=== PATIENT | female | born 1970 | race Caucasian/White ===

== ENCOUNTER → 2023-04-17 08:51 | Outpatient (CLI) | payer OTHER, SELFPAY ==
--- NOTE | ~2023-04-17 | MR_ITS ---
EXAMINATION: MR hand LT wo/w con, MR hand RT wo/w con DATE: 04/17/2023 10:16 INDICATION: Rheumatoid arthritis with chronic bilateral generalized hand pain TECHNIQUE: 1. Magnetic resonance imaging (MRI) of the left hand was performed without and with 12 mL Multihance intravenous contrast. Sequences included axial, sagittal and coronal T1-weighted FSE and fluid sensit faina FSE STIR, axial T1-weighted FS FSE and postcontrast axial and sagittal T1-weighted FS FSE. 2. MRI of the right hand was performed without and with 12 mm MultiHance intravenous contrast utilizi ng the same contrast bolus. Sequences included axial, sagittal and coronal T1-weighted FSE and fluid sensitive FSE STIR, axial T1-weighted FS FSE and postcontrast axial and sagittal T1-weighted FS FSE. COMPARISON: None FINDINGS: Left hand: There is prominent T2 hyperintense and enhancing tenosynovitis extending along the extensor carpi rad ialis longus and brevis tendons and the extensor carpi ulnaris tendon. There is a large amount of flu id in the abductor pollicis longus tendon with thin peripheral rim of surrounding enhancing synovium proximal and distal to its crossing over of the extensor carpi radialis tendons. There is severe tend inopathy and longitudinal split tearing of the extensor carpi radialis brevis tendon and of the exten sor carpi ulnaris tendon. Additional mild tenosynovitis along the distal flexor pollicis longus tendo n. Bone alignment is normal with normal marrow signal throughout. No fracture or pathologic marrow re placing process. Mild polyarticular osteoarthritis at the wrist,, triscaphe, first carpometacarpal an d multiple interphalangeal joints. No evident erosions to suggest inflammatory arthritis. Small joint effusion at the first carpometacarpal joint. Ganglion cyst extending volar from the radiocarpal join t which measures 19 x 8 x 8 mm . 9 x 8 x 4 mm fluid collection seen proximal to the pisiform likely w ithin the pisotriquetral recess. Right hand: Prominent enhancing tenosynovitis along the distal extensor indices and digitorum longus tendon to th e second digit located dorsal to the head and neck of the second metacarpal. There is additional teno synovial enhancement the deep aspect of the carpal tunnel primarily along the extensor digitorum supe rficialis tendon to the second digit with associated moderate tendinopathy and longitudinal split tea ring of the tendon at the level of the distal carpal row. Small amount of fluid without significant t enosynovial enhancement seen along the flexor pollicis longus tendon. There is mild palmar subluxatio n at the first metacarpophalangeal joint with moderate associated osteoarthritis. There is an enhanci ng T2 hyperintense erosion at the base of the first proximal phalanx. Additional mild polyarticular o steoarthritis at the wrist, triscaphe, first carpometacarpal and many of the interphalangeal joints. There are couple small T2 hyperintense enhancing erosions at the volar aspect of the proximal capitat e. Marrow signal is otherwise unremarkable. No fracture. There is additional mild enhancement with mi nimal increased fluid signal at the distal palmar interosseous muscle between the third and fourth me tacarpals. IMPRESSION: 1. Tenosynovitis involving a few flexor and extensor tendons at the bilateral hands most severe at th e left extensor carpi radialis longus and brevis, left extensor carpi ulnaris and right second flexor digitorum superficialis tendons, each with associated tendinopathy and split tearing of the tendons. This be consistent with provided history of rheumatoid arthritis. Differential would include crystal deposition diseases such as gout or CPPD. Infection, trauma or mechanical irritation be unlikely giv en the multiple independent locations. 2. Stable distribution polyarticular osteoarthritis at the bilateral hands and wrists, moderate sever ity at the right first metacarpophalangeal
== END ==
PROVIDERS: PCP Internal Medicine; Visit Provider Internal Medicine
DX: M06.9 Rheumatoid arthritis, unspecified (principal); M65.842 Other synovitis and tenosynovitis, left hand; M65.841 Other synovitis and tenosynovitis, right hand
CPT/HCPCS: 73220; A9577

== ENCOUNTER → 2023-05-05 14:36 | Outpatient (CLI) | payer OTHER, SELFPAY ==
--- NOTE | ~2023-05-05 | XR_ITS ---
XR lumbar spine min 4V DATE: 05/05/2023 15:20 INDICATION: Rheumatoid arthritis TECHNIQUE: AP, lateral, bilateral oblique views, coned lateral lumbosacral view COMPARISON: None FINDINGS: Diffuse osteopenia. Moderate degenerative disc disease and associated minimal retrolisthesis at L2-3 and L4-5. Mild degen erative disc disease at L3-4. No anterolisthesis. No spondylolysis. The included lower thoracic and lumbar pedicles are intact. No fracture or bone destruction of the lumbar spine is detected. The sacroiliac joints are intact. IMPRESSION: Mild to moderate degenerative disc disease Osteopenia Reviewed, dictated and finalized at location [facility].
--- NOTE | ~2023-05-05 | XR_ITS ---
XR sacroiliac joints min 3V DATE: 05/05/2023 15:20 INDICATION: Rheumatoid arthritis TECHNIQUE: AP and bilateral oblique views COMPARISON: None FINDINGS: Normal alignment and preservation of the sacroiliac joints, without apparent erosive change s or ankylosis. IMPRESSION: Negative sacroiliac joints Reviewed, dictated and finalized at [facility]. Reviewed, dictated and finalized at location [facility]. IMPRESSION: Negative sacroiliac joints
== END ==
PROVIDERS: PCP Family Medicine; Visit Provider Internal Medicine
DX: M05.79 Rheumatoid arthritis with rheumatoid factor of multiple sites without organ or systems involvement (principal); M51.36 Other intervertebral disc degeneration, lumbar region; M85.88 Other specified disorders of bone density and structure, other site
CPT/HCPCS: 72110; 72202

== ENCOUNTER 2024-03-21 18:51 | Emergency (ER) | payer OTHER, SELFPAY ==
[2024-03-21 19:01] VITALS: BP 132/78; PULSE 70; RESP 18; TEMP 36.9; O2SAT 99
--- NOTE | 2024-03-21 19:18 | ED.ABDPAIN ---
HPI - Abdominal Pain General Chief Complaint: Abdominal Pain Stated Complaint: stomach pain Time Seen by Provider: 03/21/24 19:10 History of Present Illness HPI narrative: patient presents with complaints of crampy burning abdominal pain that began last night. She reports it has been intermittent throughout the day today. She reports that she has somewhat loose stools at baseline, states that there has been no change in her stool pattern. She denies any urinary symptoms. She denies any fever, chills, sweats. She says she just feels bad . Patient said that a few days ago she did have some joint pain was worse than her typical rheumatoid arthritis pain. She reports that she took turmeric for this. Patient does not believe in taking Tylenol or ibuprofen Related Data Allergies Allergy/AdvReac Type Severity Reaction Status Date / Time No Known Allergies Allergy Mild Verified 03/21/24 19:04 Review of Systems Review of Systems: All systems reviewed & are unremarkable except as noted in HPI and below Constitutional: Constitutional: Reports no additional constitutional complaints ENT: Reports system reviewed and no additional complaints, except as documented and Reports as per HPI Cardiovascular: Cardiovascular: Reports as per HPI and Reports no additional cardiovascular complaints Respiratory: Respiratory: Reports as per HPI, Reports no additional respiratory complaints and Reports no additional respiratory complaints Gastrointestinal: Gastrointestinal: Reports as per HPI, Reports no additional gastrointestinal complaints, Denies change in bowel habits, Reports GI cramping, Reports dyspepsia, Denies diarrhea, Reports loose stools and Denies nausea Genitourinary: Genitourinary: Reports no additional female genitourinary complaints and Reports as per HPI Musculoskeletal: Musculoskeletal: Reports no additional musculoskeletal complaints, Reports as per HPI and Reports arthralgias [facility] Past Medical History Medical History Bilateral hand pain Chronic back pain 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 Rheumatoid arthritis with rheumatoid factor of multiple sites without organ or systems involvement (~2017) Vitamin D deficiency Family History Family History Grandparent Diabetes mellitus, Onset Age: 67 Family history of rheumatoid arthritis, Onset Age: 80 Family history of lung cancer Family history of primary malignant neoplasm of liver, Onset Age: 63 Family history of coronary artery disease, Onset Age: 67 Father Maxillary sinus cancer Social History Social History Smoking status: Never smoker Alcohol intake: current Exam Const: General: cooperative, no acute distress, alert and awake Orientation/consciousness: oriented to person, oriented to place and oriented to time HENMT: Head: normal to inspection Resp: Effort & Inspection: normal respiratory effort and able to speak in complete sentences Auscultation: clear to auscultation bilaterally, no crackles, no rales, no rhonchi and no wheezes Cardio: Palpation: normal PMI Rate: regular rate Rhythm: regular rhythm Heart sounds: S1 normal heart sound present and S2 normal heart sound present GI: GI Palp: No abdominal tenderness, Yes Soft to palpation, No Firmness to palpation present (GI), No Tenderness to palpation present (GI), No Guarding due to palpation present (GI), No Rigid due to palpation and No Rebound tenderness present Auscultation: normal bowel sounds Neuro: General: oriented to person, oriented to place and oriented to time Cranial nerves: Yes CN's II-XII intact bilaterally Psych: Appearance: grossly normal Thought process: Normal thought process present Insight: Good insight present (Psych) Judgement: Good judgement present (Psych) Course Course
[2024-03-21 19:22] LABS: EDINFLUASCREEN Positive; EDINFLUBSCREEN Negative
== END 2024-03-21 19:29 | disposition home or self-care (01) ==
PROVIDERS: Emergency Provider Nurse Practitioner Family
DX: J10.1 Influenza due to other identified influenza virus with other respiratory manifestations (principal); Z20.822 Contact with and (suspected) exposure to COVID-19; M05.79 Rheumatoid arthritis with rheumatoid factor of multiple sites without organ or systems involvement
CPT/HCPCS: 87426; 87804; 99213; G0463